=== PATIENT | female | born 1965 | race African-American/Black ===

== ENCOUNTER 2019-03-11 16:05 | Emergency (ER) | payer OTHER ==
[~2019-03-11] VITALS: Ht 162.6 cm; Wt 78.0 kg
[~2019-03-11 16:05] MED LIST: IBUP-1842 PO; NAPR220T29 PO
--- NOTE | 2019-03-11 16:05 | NUR ---
AJ ALS TO ER BED 2
[2019-03-11 16:10] VITALS: BP 148/89
--- NOTE | 2019-03-11 16:23 | NUR ---
PT BIB ALS WITH C/O HEAVINESS AT CHEST. PER PT, WAS DROPPING OFF THE GOODS AND FELT SUDDEN ONSET OF CHEST TIGHTNESS. C/O PAIN AT LUNGS. STATES TO HAVE TAKE ALBUTEROL INHALER, ABBY DOUGLAS AND SOB AT THE SITE. PT RESP VANNESSA; AND NON LABORED. O2 SAT 99% ON RA. STATES TO HAVE HEAVINESS AT THE MID CHEST LEVEL. 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 TAKES LOW DOSE ASPIRIN AT HOME. PT WAS SEEN BY PCP AROUND TWO WEEKS AGO AND WAS PRESCRIBED INHALER FOR ANY DIFFICULTY IN BREATHING. PER PT , HAS THE THYROID NODULE , BIOPSY SCHEDULED FOR 03/16/2019. NO RESP DISTRESS NOTED. VS STABLE , O2 SAT 95% RA. ER MD TO SEE THE PT. WILL CONTINUE TO MONITOR PT.
[2019-03-11] MEDS ORDERED: KETOROLAC 30 MG/ML VIAL IVP ONE (17:45)
[2019-03-11] MEDS ORDERED: NACL 0.9% 500 ML IV ONE (17:45)
--- NOTE | 2019-03-11 17:59 | NUR ---
ADMINISTERED MEDS TO PT AT BEDSIDE. EMT AT THE BEDSIDE, X-RAY AT THE BEDSIDE.
--- NOTE | 2019-03-11 18:09 | NUR ---
AWAITING DISCHARGE INFORMATION FROM
[2019-03-11 19:13] VITALS: BP 118/71
--- NOTE | 2019-03-11 19:13 | NUR ---
Patient discharged with v/s stable. Written and verbal after care instructions given and explained. Patient alert, oriented and verbalized understanding of instructions. Ambulatory with steady gait. All questions addressed prior to discharge. ID band removed. Patient advised to follow up with PMD. Rx of NAPROSYN 500 MG TAB AND ATIVAN 0.5 M TAB given. Patient educated on indication of medication including possible reaction and side effects. Opportunity to ask questions provided and answered.
--- NOTE | 2019-03-12 08:49 | NUR ---
Late entry. COnfirmed with RN that 0.9 NS IV at 100ml/hr infused until discharge at 1909
== END 2019-03-11 19:13 | disposition home or self-care (01) ==
LOC: MED 16:05
DX: F41.9 Anxiety disorder, unspecified (principal); R09.1 Pleurisy; Z88.1 Allergy status to other antibiotic agents; Z88.5 Allergy status to narcotic agent; Z88.2 Allergy status to sulfonamides; Z79.899 Other long term (current) drug therapy
CPT/HCPCS: 71045; 96374; 99283; J1885; J7030; Q0092